=== PATIENT | male | born 1980 | race Asian ===

== ENCOUNTER → 2022-02-17 07:46 | Outpatient (CLI) | payer OTHER, SELFPAY ==
--- NOTE | 2022-02-17 | DI.US.S_ITS ---
PROCEDURE: US ABDOMEN LIMITED INDICATIONS: PANCREAS EVALUATION TECHNIQUE: Real-time focused scanning was performed of the abdomen, with image documentation. COMPARISON: None. FINDINGS: The liver demonstrates enlarged size. The liver demonstrates generalized mildly increased echogenicity. This decreases ultrasound sensitivity for detection of hepatic masses. Areas of apparent focal fatty sparing can be seen, including a 2.9 cm focus anterior to the fatou hepatis and a 1.9 cm focus seen adjacent to the gallbladder. The main portal vein demonstrates normal size and demonstrates normal appearing, hepatopetal flow. No findings of gallstones or sludge are seen. The gallbladder wall is not thickened, measuring 3 mm or less. No specific pericholecystic fluid is seen. The sonographic Miller sign is negative. There is no biliary dilatation, the common bile duct measures 3 mm. No significant pancreatic abnormality is seen on these images. Overall scan quality is limited by bowel gas. IMPRESSION: The visualized pancreas is unremarkable, although the study is overall limited by bowel gas. Enlarged, fatty liver, with areas of apparent focal fatty sparing. Dictated by: Raheem Canales M.D. on 02/17/2022 at 9:52 Approved by: Raheem Canales M.D. on 02/17/2022 at 9:54
== END ==
PROVIDERS: PCP Family Medicine Sports Medicine; Referring Provider Family Medicine Sports Medicine; Visit Provider Family Medicine Sports Medicine
DX: K76.0 Fatty (change of) liver, not elsewhere classified (principal); R10.9 Unspecified abdominal pain
CPT/HCPCS: 76705

== ENCOUNTER → 2025-02-04 14:19 | Outpatient (CLI) | payer OTHER, SELFPAY ==
--- NOTE | 2025-02-04 14:20 | DI.MRI.S_ITS ---
PROCEDURE: MR ELBOW LT W CON INDICATIONS: tear TECHNIQUE: Noncontrast coronal proton density fast spin echo and T2 fast spin echo with fat saturation, axial and sagittal T1 spin echo and T2 fast spin echo with fat saturation through the elbow. COMPARISON: None. FINDINGS: Image quality: Excellent. Lateral structures: The lateral ulnar collateral ligament and radial collateral ligament both appear thickened. The overlying common extensor tendon also appears thickened. Medial structures: The ulnar collateral ligament appears attenuated with intrasubstance T2 hyperintense signal at its medial epicondylar insertion. The overlying common flexor tendon appears thickened at its medial epicondylar insertion.. The ulnar nerve appears normal in size and signal within the cubital tunnel. Anterior structures: There is full-thickness rupture of distal supraspinatus at its insertion on proximal radius with up to 9.6 cm proximal retraction of torn tendon fibers to the level of distal humeral shaft. Large amount of surrounding fluid and soft tissue edema is seen. Nonvisualization of normal lacertus fibrosus suggestive of ruptured lacertus. The brachialis tendon is intact at its insertion on proximal ulnar shaft. The median and radial neurovascular bundles appear normal; no focal muscle atrophy to suggest nerve impingement. Posterior structures: The triceps tendon is intact. No olecranon bursal fluid. Bone and cartilage: No bone marrow contusions or fractures. No osteochondral injuries. IMPRESSION: 1. Full-thickness rupture of distal biceps tendon at its proximal radial insertion with up to 9.6 cm proximal retraction of torn tendon fibers to the level of distal humeral shaft with large amount of surrounding fluid and soft tissue edema. Suggestion of ruptured lacertus fibrosus. The brachialis tendon is intact. 2. Suggestion of low-grade medial and lateral epicondylitis. 3. No marrow edema. No fracture or dislocation. No suspicious bony lesions. Dictated by: Branden Amor M.D. on 02/06/2025 at 10:37 Approved by: Branden Amor M.D. on 02/06/2025 at 10:42
== END ==
LOC: MRI 14:20
PROVIDERS: PCP Family Medicine Sports Medicine; Referring Provider Family Medicine Sports Medicine; Visit Provider Family Medicine Sports Medicine
DX: S46.212A Strain of muscle, fascia and tendon of other parts of biceps, left arm, initial encounter (principal); X58.XXXA Exposure to other specified factors, initial encounter
CPT/HCPCS: 73221